=== PATIENT | female | born 1960 | race Caucasian/White ===

== ENCOUNTER 2017-07-17 10:03 | Emergency (ER) | payer OTHER ==
[2017-07-17 10:50] VITALS: BP 148/100
--- NOTE | 2017-07-17 11:20 | UC ---
Bite Injury/Animal HPI - HPI Summary HPI Summary: states she noticed something on her arm and she brushed it away this morning and noticed a tick which was still moving. SHe caught the tick and brought it here in a jar. She states she went hiking yesterday at around this time and did not take a shower last night. Denies other possible exposure before yesterday. - History of Current Complaint Chief Complaint: [place] Stated Complaint: TICK BITE Time Seen by Provider: 07/17/17 10:57 Hx Obtained From: Patient ?: No Severity Initially: Mild Pain Intensity: 0 Onset/Duration: Sudden Onset Type of Bite: Wild Animal - tick Has Animal Been Immunized?: Unknown Character: Puncture Aggravating Factor(s): Nothing Alleviating Factor(s): Nothing Associated Signs And Symptoms: Positive: Negative Animal Available for Observation: Yes - Risk Factors Infection/Sepsis Risk Factors: Negative - Allergies/Home Medications Allergies/Adverse Reactions: Allergies Allergy/AdvReac Type Severity Reaction Status Date / Time Sulfa (Sulfonamide Allergy Hives Verified 07/17/17 10:44 Antibiotics) Home Medications: Home Medications Carisoprodol [Carisoprodol] 350 mg PO TID 07/17/17 [History Confirmed 07/17/17] hydroCHLOROthiazide [Hydrochlorothiazide] 12.5 mg PO DAILY 07/17/17 [History Confirmed 07/17/17] PMH/Surg Hx/FS Hx/Imm Hx Previously Healthy: Yes - Surgical History Surgical History: Yes Surgery Procedure, Year, and Place: TONSILECTOMY-as a child. D& C - Social History Alcohol Use: Weekly Substance Use Type: None Smoking Status (MU): Never Smoked Tobacco Review of Systems Constitutional: Negative All Other Systems Reviewed And Are Negative: Yes Physical Exam Triage Information Reviewed: Yes Appearance: Well-Appearing, No Pain Distress, Obese Vital Signs: Initial Vital Signs Temp 97.5 F 07/17/17 10:47 Pulse 80 07/17/17 10:47 Resp 16 07/17/17 10:47 BP 148/100 07/17/17 10:47 Pulse Ox 100 07/17/17 10:47 Vital Signs Reviewed: Yes Eyes: Positive: Conjunctiva Clear Respiratory: Positive: Chest non-tender Cardiovascular: Positive: Pulses Normal, Brisk Capillary Refill Skin Exam: Other - small puncture site on volar surface of left arm. No surrounding erythema. Bite Injury Course/Dx - Course Course Of Treatment: Discussed with patient presence of tick bite of about 24 hr on left arm, tick was obtained and brought in by patient alive and it was not engorged with blood. Patient denies itching or pain on site of bite, observe site for any rashes. D/w patient risks vs benefits of treatment vs observation and will observe for rashes - Differential Dx/Diagnosis Provider Diagnoses: Tick bite Discharge - Sign-Out/Discharge Documenting (check all that apply): Discharge/Admit/Transfer - Discharge Plan Condition: Stable Disposition: HOME Patient Education Materials: Tick Bite (ED), Lyme Disease (ED) Referrals: Ginette Daniel MD [Primary Care Provider] - - Billing Disposition and Condition Condition: STABLE Disposition: HOME
== END 2017-07-17 11:15 | disposition home or self-care (01) ==
LOC: UCEAST 10:03
DX: S40.862A Insect bite (nonvenomous) of left upper arm, initial encounter (principal); W57.XXXA Bitten or stung by nonvenomous insect and other nonvenomous arthropods, initial encounter; Y93.01 Activity, walking, marching and hiking; Y92.9 Unspecified place or not applicable; Z88.2 Allergy status to sulfonamides
CPT/HCPCS: 99211; G0463